=== PATIENT | female | born 1945 | race Caucasian/White ===

== ENCOUNTER 2020-05-23 09:46 | Inpatient (IN) | payer OTHER ==
[~2020-05-23] VITALS: Ht 165.1 cm; Wt 98.9 kg
[2020-05-23 10:30] VITALS: BP 109/56
[2020-05-23 11:18] LABS: ABSOLUTE NEUTROPHILS 6.6 thou/uL (1.4-8.2); BASOPHILS 0.8 % (0.0-2.0); EOSINOPHILS 1.2 % (0.0-3.0); HEMATOCRIT 38.4 % (37.0-47.0); HEMOGLOBIN 12.8 gm/dL (12.0-15.0); LYMPHOCYTES 20.5 % (24.0-44.0); MCH 31.3 pg (26.0-34.0); MCHC 33.5 g/dL (28.0-37.0); MCV 93.4 fL (80.0-100.0); MONOCYTES 9.5 % (1.0-8.0); PLATELET COUNT 248 thou/uL (150-400); RBC 4.11 mil/uL (4.20-5.00); RDW 12.8 % (10.5-14.5); WBC 9.8 thou/uL (4.0-11.0)
[2020-05-23 11:30] LABS: ANION GAP 7 mmol/L (7-16); BUN 10 mg/dL (7-18); CALCIUM 8.6 mg/dL (8.5-10.1); CHLORIDE 106 mmol/L (98-107); CO2 27 mmol/L (21-32); GLUCOSE 105 mg/dL (74-106); POTASSIUM 3.4 mmol/L (3.5-5.1); SODIUM 140 mmol/L (136-145); TROPONIN-I <0.06 ng/mL (<0.06)
[2020-05-23] MEDS ORDERED: PRAVACHOL 20 MG20 M1 PO (13:57)
[2020-05-23] MEDS ORDERED: PROTONIX40 M2 (13:58)
[2020-05-23 16:00] VITALS: BP 116/56
--- NOTE | 2020-05-23 16:46 | NUR ---
ASSUMED CARE OF PT AT APPROX 1030 FROM [facility] S/P R KNEE TOTAL REPLACEMENT, D/T AFIB W RVR. UPON ARRIVAL PT HAD CONVERTED TO NSR WITH RATES IN 60S. ADMISSION ORDERS AND INSTRUCTIONS COMPLETE. PT A&OX4, C/O PAIN TREATED WITH PO MEDS WITH PARTIAL RELIEF. PLAN TO DC TOMORROW LONG STABLE. DR. HOPPER WILL VISIT IN THE MORNING WITH CARE INSTRUCTIONS FROM [facility]. WILL CONTINUE TO MONITOR AND FOLLOW POC.
[2020-05-23 20:55] VITALS: BP 112/63
[2020-05-24 04:45] VITALS: BP 126/50
--- NOTE | 2020-05-24 07:11 | NUR ---
ASSUMED PT CARE AT THE CHNAGE OF SHIFT, PT IS AWAKE, ALERT AND ORIENTED, REMAINED SR ON THE MONITOR, PAIN MEDS GIVEN WITH PARTIAL RELIEF, DENIES HAVING CONCERNS ASESSMENTS CHARTED,PASSED ON REPORT
--- NOTE | 2020-05-24 08:14 | H ---
[facility] [place] [address] HISTORY AND PHYSICAL Name: ALECIA LEAL Room #: 219-P ADM IN M.R.#: [id number] Admission: 05/23/20 Attend Phys: Melvin Randall MD, Discharge: Date of : 49 Report #: [id number] THIS REPORT FOR: cc: FAM - No family physician/PCP FAM - No family physician/PCP Wiley Elam MD ~ DATE OF SERVICE: 05/23/2020 INDICATION: Atrial fibrillation. HISTORY OF PRESENT ILLNESS: This is a pleasant 75-year-old female with a history of Roper's esophagus, hypercholesterolemia, left knee arthroplasty, who presents with new-onset atrial fibrillation. She underwent a right knee arthroplasty yesterday at [facility]. She had been in sinus rhythm. This morning, she was noted to be in a rapid heart rate, ECG reveals atrial fibrillation with a heart rate of 150 beats per minute. She was relatively asymptomatic at the time, denies any dyspnea or chest pain. However, when she stood up, she felt lightheaded momentarily with a low blood pressure. There was no history of fever, chills, nausea or cough. She was transferred to [facility] for further evaluation. She was noted to be in sinus rhythm by the time she arrived in the CCU. 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 Hypercholesterolemia, Roper's esophagus. ALLERGIES: PENICILLIN AND SULFA. MEDICATIONS: Include statin and PPI. SOCIAL HISTORY: Denies tobacco use. FAMILY HISTORY: Negative for premature CAD. REVIEW OF SYSTEMS: A full 10-point review of systems performed. Only the pertinent positives and negatives are described in the HPI. PHYSICAL EXAMINATION: VITAL SIGNS: Blood pressure is 109/60, heart rate 70 beats per minute. GENERAL APPEARANCE: An overweight female, in no acute distress. HEENT: Normocephalic, atraumatic. Oral mucosa moist. NECK: Supple, no JVD. LUNGS: Clear to auscultation. CARDIAC: Regular rate and rhythm, S1, S2 positive. ABDOMEN: Soft, nontender. EXTREMITIES: No edema, no cyanosis. [facility] [address] [place] [address] HISTORY AND PHYSICAL Name: ALECIA LEAL Urban Room #: 219-P [facility] IN ..#: [id number] Admission: 05/23/20 Attend Phys: Melvin Randall MD, Discharge: Date of : 49 Report #: [id number] ECG reveals sinus rhythm. LABORATORY VALUES: White count is 9.8, hemoglobin is 12.8. Troponin is negative. Sodium is 140, creatinine is 1.0. ASSESSMENT AND PLAN: 1. Atrial fibrillation, clinically asymptomatic. CHADS score of 2, we discussed the pros and cons of long-term anticoagulation. She understands and wishes to proceed. She will need an ischemic evaluation, an echocardiogram, may schedule as an outpatient if she remains clinically stable. 2. Roper's esophagus, continue with PPI. 3. Hypercholesterolemia, continue with statin therapy. 4. Status post right knee arthroplasty, continue with physical therapy. <ELECTRONICALLY SIGNED> By: Wiley Elam MD 05/24/20 0814 [id number] [id number] Wiley Elam MD /nt
[2020-05-24 08:30] VITALS: BP 132/64
[2020-05-24] MEDS ORDERED: XARELTO20 MG PO (09:56)
[2020-05-24 10:21] VITALS: BP 132/64
--- NOTE | 2020-05-24 11:36 | NUR ---
ASSUMED CARE OF PT AT SHIFT CHANGE. ASSESSMENT CHARTED. MEDS GIVEN PER JUN. PT A&OX4, C/O PAIN TREATED WITH PO MEDS WITH PARTIAL RELIEF. DRESSING CHANGED PER [facility] INSTRUCTIONS. DISCHARGE ORDERS AND INSTRUCTIONS COMPLETE. IV AND TELE DC'D. THIS NURSE TOOK PT OUT VIA WHEELCHAIR TO ER ENTRANCE WHERE WAS WAITING IN CAR.
--- NOTE | 2020-05-25 06:52 | NUR ---
PATIENT D/C PRIOR TO OT EVAL BEING PERFORMED
--- NOTE | 2020-05-25 07:42 | EKG ---
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: 219 : 1945 Requested By: Melvin Randall Order Number: [id number] MD: Patrick De La Rosa Measurements Intervals [place] Rate: 60 P: 19 FL: 146 QRS: 24 QRSD: 81 T: 21 QT: 387 QTc: 387 Interpretive Statements Sinus rhythm Abnormal R-wave progression, early transition No previous ECG available for comparison Electronically Signed On 05-25-2020 7:42:22 HAND MOUNTER by Patrick De La Rosa [email or web address] <ELECTRONICALLY SIGNED> By: Patrick De La Rosa MD, [facility] 05/25/20 0742 [id number] [id number] Patrick De La Rosa MD, FACC /EPI
== END 2020-05-24 11:38 | disposition home or self-care (01) | DRG 310 ==
LOC: 2N 09:46
PROVIDERS: ADMIT Internal Medicine Cardiovascular Disease; ATTEND Internal Medicine Cardiovascular Disease
DX: I48.20 Chronic atrial fibrillation, unspecified (principal); E78.00 Pure hypercholesterolemia, unspecified; K22.70 Barrett's esophagus without dysplasia; Z88.0 Allergy status to penicillin; Z88.2 Allergy status to sulfonamides; Z98.890 Other specified postprocedural states
CPT/HCPCS: 10081

== ENCOUNTER → 2020-05-26 | Outpatient (CLI) | payer OTHER ==
[~2020-05-26] MED LIST: PRAVACHOL 20 MG20 M1 PO; PROTONIX40 M2; XARELTO20 MG PO
== END ==
LOC: SJCVCIMAG 08:18
PROVIDERS: ATTEND Internal Medicine Cardiovascular Disease
DX: I08.8 Other rheumatic multiple valve diseases (principal); I48.91 Unspecified atrial fibrillation; I77.89 Other specified disorders of arteries and arterioles; R00.0 Tachycardia, unspecified; I49.1 Atrial premature depolarization; E78.00 Pure hypercholesterolemia, unspecified; K21.9 Gastro-esophageal reflux disease without esophagitis; M19.90 Unspecified osteoarthritis, unspecified site; Z96.651 Presence of right artificial knee joint; Z88.0 Allergy status to penicillin; Z88.8 Allergy status to other drugs, medicaments and biological substances; Z79.899 Other long term (current) drug therapy

== ENCOUNTER → 2020-11-23 | Outpatient (CLI) | payer OTHER | LOC: SJCVC 12:48 | PROVIDERS: ATTEND Internal Medicine Cardiovascular Disease | DX: I49.9 Cardiac arrhythmia, unspecified (principal); E78.00 Pure hypercholesterolemia, unspecified; I48.91 Unspecified atrial fibrillation; M19.90 Unspecified osteoarthritis, unspecified site; K21.9 Gastro-esophageal reflux disease without esophagitis; Z96.651 Presence of right artificial knee joint; Z88.0 Allergy status to penicillin; Z88.2 Allergy status to sulfonamides; Z79.82 Long term (current) use of aspirin; Z79.899 Other long term (current) drug therapy; Z87.891 Personal history of nicotine dependence ==

== ENCOUNTER → 2021-06-02 | Outpatient (CLI) | payer OTHER | LOC: SJCVC 14:29 | PROVIDERS: ATTEND Internal Medicine Cardiovascular Disease | DX: I48.91 Unspecified atrial fibrillation (principal); E78.00 Pure hypercholesterolemia, unspecified; K21.9 Gastro-esophageal reflux disease without esophagitis; R60.9 Edema, unspecified; Z88.0 Allergy status to penicillin; Z88.5 Allergy status to narcotic agent; M19.90 Unspecified osteoarthritis, unspecified site; Z79.899 Other long term (current) drug therapy; Z98.890 Other specified postprocedural states; Z87.891 Personal history of nicotine dependence ==